=== PATIENT | male | born 1975 | race Caucasian/White ===

== ENCOUNTER 2017-07-21 05:25 | Observation (INO) | payer BC, SELFPAY ==
[2017-07-21 07:17] LABS: #Eosinphils 0.1 thou/uL (0.0-0.7); #Lymphocytes 1.4 thou/uL (1.20-3.40); #Monocytes 0.8 thou/uL (0.11-0.59); #Neutrophils 8.9 thou/uL (1.40-6.50); %Basophils 0.1 % (0.0-1.0); %Eosinophils 0.6 % (0.0-10.0); %Lymphocytes 12.2 % (21.0-51.0); %Monocytes 6.8 % (0.0-10.0); %Neutrophils 80.3 % (42.0-75.0); Hemoglobin 15.5 g/dL (14.0-18.0); Mean Corpuscular HGB CONC 34.4 g/dL (32.0-36.0); Mean Corpuscular Hemoglobin 28.7 pg (27.0-31.0); Mean Corpuscular Volume 83.4 fl (80.0-94.0); Mean Platelet Volume 6.1 fL (7.4-10.4); Platelet Count 267 thou/uL (130-400); RBC Distribution Width 11.6 % (11.5-14.5); White Blood Cell (WBC) Count 11.1 thou/uL (4.8-10.8)
[2017-07-21 07:21] LABS: ALT (SGPT) 21 U/L (8-55); AST (SGOT) 16 U/L (5-34); Albumin 4.3 g/dL (3.5-5.0); Alkaline Phosphatase 75 U/L (40-150); Anion Gap 16 mmol/L (10-20); BUN (Urea Nitrogen) 14 mg/dL (8.9-20.6); Bilirubin, Total 0.4 mg/dL (0.2-1.2); CK (CPK) 55 U/L (30-200); Calc. Creatinine Clearance 0 mL/min (70-130); Calcium 9.2 mg/dL (7.8-10.44); Carbon Dioxide 23 mmol/L (22-29); Chloride 105 mmol/L (98-107); Estimated GFR-MDRD Greater than 90; Globulin 3.1 g/dL (2.4-3.5); Glucose 150 mg/dL (70-105); Lipase 14 U/L (8-78); Potassium 3.7 mmol/L (3.5-5.1); Protein, Total 7.4 g/dL (6.0-8.3); Sodium 140 mmol/L (136-145)
[2017-07-21 07:22] LABS: Acetaminophen Less than 6.0 mcg/mL (10.0-30.0); Alcohol Less than 10 mg/dL (Less than 10); Salicylate Less than 8.0 mg/dL (15.0-30.0)
[2017-07-21 07:25] LABS: CKMB 0.4 ng/mL (0-6.6); Troponin I Less than 0.010 ng/mL (< 0.028)
[2017-07-21 07:27] LABS: Bilirubin Negative (Negative); Blood, Urine Negative (Negative); Clarity CLEAR (Clear); Glucose, Urine (Dipstick) 100 mg/dL (Negative); Leukocyte Negative (Negative); Nitrite Negative (Negative); Protein, Urine (Dipstick) Trace mg/dL (Neg-Trace); Specific Gravity, Urine 1.026 (1.002-1.036); Urobilinogen 0.2 mg/dL (0.2-1.0)
[2017-07-21 07:40] LABS: Amphetamine Not Detected (NotDetected); Barbiturates Screen Not Detected (NotDetected); Benzodiazepine Screen Not Detected (NotDetected); Cocaine Metabolite Screen Not Detected (NotDetected); Medtox Reader # READER 1; Methadone Not Detected (NotDetected); Methamphetamine Not Detected (NotDetected); Opiate Screen Not Detected (NotDetected); Phencyclidine (PCP) Not Detected (NotDetected); THC/Cannabinoid Screen Not Detected (NotDetected); Tricyclic Screen Not Detected (NotDetected)
[2017-07-21 07:41] LABS: Medtox Control Line Valid? VALID (VALID); Oxycodone Screen Not Detected (NotDetected)
--- NOTE | 2017-07-21 07:59 | CT ---
NONCONTRAST HEAD CT: Date: 07/21/17 HISTORY: Altered mental status. COMPARISON: None. TECHNIQUE: Noncontrast head CT is performed from skull base to skull vertex. FINDINGS: No parenchymal hemorrhage or extra-axial hematoma. No midline shift. Basilar cisterns are patent. Bra in volume is age-appropriate. Cortical santos-white matter differentiation is preserved. Ventricles and sulci are patent and symmetric. Calvarium is intact. Adequate aeration of the sinuses and mastoid ai r cells. IMPRESSION: No acute intracranial process. POS: OFF
--- NOTE | 2017-07-21 08:17 | CT ---
CTA THORAX WITH CONTRAST CTA ABDOMEN WITH CONTRAST: (Computed Tomographic Angiography, chest(noncoronary) with contrast material, and image postprocessin g) (Computed Tomographic Angiography, abdomen with contrast material, and image postprocessing) Date: 07/21/17 Time: 0737 hours HISTORY: 41-year-old male status post syncope, with dyspnea and chest pain that radiates to the posterior aspe ct of the chest. TECHNIQUE: IV injection of iodinated contrast: 100 mL [id number]. Arterial phase bolus chasing technique. Scan acquisition from top of top of aortic arch to iliac crests. 3D MIP reconstructions. FINDINGS: There is no thoracic aortic aneurysm, dissection, or rupture. No mediastinal lymphadenopathy. The thy roid gland is diffusely enlarged, with multiple nodules. The right lobe of the thyroid gland is asymm etrically significantly larger than the left, and has a component that extends slightly inferior to t he superior edge of the sternal manubrium. The trachea is mildly to moderately deviated to the left, and mildly narrowed. No pulmonary edema, air space density, bronchiectasis, or bullae. Mild dependent densities at the posterior, subpleural aspects of the bilateral lower lobes. No pleural effusion or pneumothorax. No high grade narrowing of the trachea or major bronchi. No destructive osseous lesion identified. IV contrast opacification of pulmonary arteries is insufficient to evaluate for pulmonary thromboembolism, but there is no thrombus in the pulmonic trunk, or the left and right main pulmonar y arteries. Beyond that, the branches of the pulmonary arteries cannot be evaluated. No free fluid id entified in the upper abdominal cavity. No abdominal aortic aneurysm or dissection. Bilateral kidneys , adrenals, liver, and spleen demonstrate no obvious abnormality. Visualized upper portions of the co nargis and small intestine demonstrate no acute abnormality. There are multiple mildly enlarged mesenter ic lymph nodes. There is a mild twisting of the mesentery to the right of midline in the central abdo men. No associated venous or arterial mesenteric occlusion identified. No pneumoperitoneum identified . The pancreas, adrenals, liver, and spleen are also normal. IMPRESSION: 1. No aortic dissection or aneurysm. 2. No acute findings. 3. Multinodular goiter, including right substernal goiter. sherrie[] POS: TANISHA
[2017-07-21 10:08] LABS: Free T4 (Free Thyroxine) 1.33 ng/dL (0.70-1.48)
[2017-07-21 10:08] LABS: Troponin I Less than 0.010 ng/mL (< 0.028)
[2017-07-21] MEDS ORDERED: Loperamide HCl 2 MG CAP PO PRN (10:26)
[2017-07-21] MEDS ORDERED: Dextrose 5% in Water 1,000 ML IV PRN (10:26)
[2017-07-21] MEDS ORDERED: HumaLOG 300 UNITS/3 ML VIAL SC PRN ×2 (10:26)
[2017-07-21] MEDS ORDERED: Milk Of Magnesia 30 ML UDCUP PO PRN (10:26)
[2017-07-21] MEDS ORDERED: Ondansetron HCl/PF 4 MG/2 ML Vial IVP PRN (10:26)
[2017-07-21] MEDS ORDERED: Zolpidem Tartrate 5 MG TAB PO PRN (10:26)
[2017-07-21] MEDS ORDERED: Sodium Chloride 0.65% Nasal 44 ML BOT EA NARE PRN (10:26)
[2017-07-21] MEDS ORDERED: Loratadine 10 MG TAB PO PRN (10:26)
[2017-07-21] MEDS ORDERED: hydrALAZINE 20 MG/ML VIAL SLOW IVP PRN (10:26)
[2017-07-21] MEDS ORDERED: Diabetic Tussin 200 MG/10 ML UDCUP PO PRN (10:26)
[2017-07-21] MEDS ORDERED: Acetaminophen 325 MG TAB PO PRN (10:26)
[2017-07-21] MEDS ORDERED: Eucerin (Mineral Oil/Petrolatum,White) 30 gm Jar TOP PRN (10:26)
[2017-07-21] MEDS ORDERED: Chloraseptic Spray 180 ml Bottle PO PRN (10:26)
[2017-07-21] MEDS ORDERED: Artificial Tears 18 DROP/0.9 ML EA EYE PRN (10:26)
[2017-07-21] MEDS ORDERED: Mag-Al 1200 mg/1200 mg/30 ML UDCUP PO PRN (10:26)
[2017-07-21] MEDS ORDERED: HYDROcodone/Acetaminophen 5/325 mg Tablet PO PRN (10:26)
[2017-07-21] MEDS ORDERED: Senokot 8.6 MG TAB PO PRN (10:26)
[2017-07-21] MEDS ORDERED: Dextrose 50% Abboject 50 ML SYRINGE SLOW IVP PRN (10:26)
[2017-07-21] MEDS ORDERED: Ondansetron ODT 4 MG TAB PO PRN (10:26)
[2017-07-21] MEDS ORDERED: Benzonatate 100 MG CAP PO PRN (10:26)
[2017-07-21] MEDS ORDERED: Albuterol Sulfate 2.5 mg/3 ml Neb NEB PRN (10:26)
[2017-07-21] MEDS ORDERED: Sodium Chloride 0.9% 1,000 ML IV SCH (10:45)
--- NOTE | 2017-07-21 10:48 | HP ---
PRIMARY CARE PHYSICIAN: [facility] per patient. REASON FOR ADMISSION: Altered mental status. HISTORY OF PRESENT ILLNESS: A 41-year-old male who has history of diabetes type 2, who was brought t o the ER for altered mental status. The patient's girlfriend is present who provided most of the his tory. Patient reports that around 4:30 this morning, he had syncopal episode. As per description of girlfriend, the patient was clammy and pale. The patient was not able to move any extremity, though he was awake. The patient was incoherent. He was feeling very weak all over. He was not able to g rip in both hands. After a short term, the patient was able to feel and he was able to move one by o ne extremity and when he came to the ER, he was feeling normal. He denies any associated chest pain, palpitation, shortness of breath. He has diabetes history, but paramedics checked the blood sugar w hich was 142 at home. The patient was able to get out of bed by himself at home. In the emergency r oom, he was remaining stand still and that is why for altered mental status workup, CT brain was done which was unremarkable. Routine blood tests showed elevated ammonia and low TSH. Yesterday, the patient went to [facility] urgent care where he presented for shortness of breath and chest pain, which was left-sided in nature without any palpitation, without any exertional worse betty or radiation. He had a chest x-ray and he was told that there was something shadow in his chest , but they suspected walking pneumonia and bronchitis and he was given Z-REY, albuterol inhaler and c ough pill and the patient was discharged with outpatient followup with primary care doctor and stress test if needed. The patient took one pill of Z-REY and Tessalon Perles. He does have some cough, but he denies any p leuritic chest pain. He denies any fever or chills. He denies any nausea, vomiting, diaphoresis. Today, CT dissection protocol was done which was negative for any dissection, but it did show subster nal goiter. The patient feels that he was anxious. ALLERGIES: No known drug allergy. CURRENT HOME MEDICATIONS: Tessalon 100 mg q.8 hourly p.r.n., albuterol 2 puffs q.4 hourly p.r.n., gl ipizide 5 mg twice daily, lisinopril 20 mg p.o. daily, metformin 1000 mg twice daily, pravastatin 40 mg p.o. daily, Zoloft 50 mg p.o. daily. REVIEW OF SYSTEMS: The following complete review of systems was negative, unless otherwise mentioned in the HPI or below: Constitutional: Weight loss or gain, ability to conduct usual activities. Skin: Rash, itching. Eyes: Double vision, pain. ENT/Mouth: Nose bleeding, neck stiffness, pain, tenderness. Cardiovascular: Palpitations, dyspnea on exertion, orthopnea. Respiratory: Shortness of breath, wheezing, cough, hemoptysis, fever or night sweats. Gastrointestinal: Poor appetite, abdominal pain, heartburn, nausea, vomiting, constipation, or diarr hea. Genitourinary: Urgency, frequency, dysuria, nocturia. Musculoskeletal: Pain, swelling. Neurologic/Psychiatric: Anxiety, depression. Allergy/Immunologic: Skin rash, bleeding tendency. Please see my HPI for pertinent positive and negative. All other review of systems reviewed and nega tive except as mentioned in the HPI. As per emergency room physician, patient was initially mumbling, but when I saw this patient, at that time he was completely normal, and patient was feeling back to normal. PAST MEDICAL HISTORY: Diabetes type 2, hypertension, dyslipidemia, morbid obesity. PAST SURGICAL HISTORY: Stomach surgery, appendicectomy, tonsillectomy. PAST PSYCHIATRIC HISTORY: Anxiety and depression. SOCIAL HISTORY: The patient quit smoking 6 months ago, but currently dips tobacco. He denies any al cohol abuse. He denies any other illicit drug abuse. He is working in [employer]. FAMILY HISTORY: No strong family history of premature coronary artery disease, stroke or cancer. EMERGENCY ROOM COURSE: Patient is given lactulose 30 mL p.o., aspirin 324 mg and IV fluid. PHYSICAL EXAMINATION: VITAL SIGNS: On arrival, blood pressure 142/81, pulse 94, respiratory rate 20, temperature 98.5, sat uration 98% on room air, weight 108.9 kilograms. GENERAL: The patient is currently alert, oriented, no acute distress. HEENT: Head: Normocephalic, atraumatic. Eyes: Pupils round, reactive to light. Extraocular muscl e intact. ENT: Oropharynx within normal limits. Moist mucous membranes, no oral lesion, no pharyng eal erythema, no exudate. NECK: Supple, no JVD, no thyromegaly, no carotid bruit, no meningeal signs of irritation. LUNGS: Clear to auscultation without any rhonchi or rales. CARDIAC: S1, S2 regular. No murmur, no gallop, no rub. ABDOMEN: Obesity present. Bowel sounds present, nontender, nondistended. No organomegaly, no mass, no suprapubic tenderness. BACK: Unremarkable, no CVA tenderness. EXTREMITIES: Upper extremity: Passive movement of all joints are normal. Lower extremity: No leigh a, good peripheral pulsation, no calf tenderness. SKIN: No skin rash. HEMATOLOGICAL: No lymphadenopathy. PSYCHIATRIC: Anxious affect. NEUROLOGIC: The patient is alert, oriented x3. Cranial nerves II through XII intact. Motor 5/5 in all four limbs. Sensation bilaterally symmetrical. Plantar bilateral flexor. SIGNIFICANT LABORATORY DATA: 1. CBC: WBC 11.1, hemoglobin 15.5, platelet 267. ESR 13. BMP: Sodium 140, potassium 3.7, chlorid e 105, carbon dioxide 23, anion gap 16, BUN 14, creatinine 0.79, glucose 150, calcium 9.2. 2. LFT: AST 16, ALT 21, alkaline phosphatase 75, albumin 4.3. Ammonia 78. CK 55, CK-MB 0.4, tropo paula I less than 0.010. CRP 0.73. TSH less than 0.0025. Lipase 14. Prolactin 4.56. Urinalysis unr emarkable. Urine drug screen negative. Serum drug screen negative. IMAGING: CT brain based on my review, no acute intracranial process. CT dissection protocol based o n my review, no evidence of dissection or pulmonary embolism, but it did show substernal goiter. ASSESSMENT AND PLAN: 1. Acute altered mental status. Patient's description is very weak. He does not have any focal cami rological deficit. His CT brain is negative, does not suspect any intracranial pathology. Currently , he has very low TSH and I am suspecting patient has underlying hyperthyroidism. We will check free T4 and free T3 that may explain his anxiety and subsequent presentation. Some presentation is also not explained clinically to the pinpoint diagnosis and that is why we will consult Neurology for thei r opinion. He has elevated ammonia, but that does not explain his presentation. He does not have an y asterixis or any chronic liver disease and his other LFT is normal. 2. Hyperammonemia, unexplained. The patient is not taking any Valproic acid. He does not have any chronic liver disease. At this point, we will repeat an ammonia level tomorrow and the patient is gi glenn lactulose one time dose in the emergency room. 3. Very low TSH, suspecting hyperthyroidism. The patient has substernal goiter. We will check free T3 and free T4 and the patient will need outpatient endocrinology followup. 4. Morbid obesity. Dietary education given, weight loss education given. Healthy lifestyle measure s discussed with the patient. 5. Diabetes type 2. We will continue glipizide 5 mg twice daily, metformin 1000 mg twice daily afte r 48 hours and we will continue insulin as per sliding scale per protocol. Diabetic diet will be giv en. We are holding metformin, because of contrast given today with CT dissection protocol. 6. Dyslipidemia. We will continue pravastatin 40 mg p.o. at bedtime and check lipid profile tomorro w. 7. Anxiety and depression. Continue Zoloft 50 mg p.o. daily. 8. Chest pain. Patient will need to rule out cardiac etiology and that is why we will do serial car diac enzymes x3 and the patient will need outpatient followup with primary care physician. We will d o a treadmill stress test for diagnostic reason. 9. Deep venous thrombosis prophylaxis not needed, because we are expecting discharge in 24 hours. 10. Gastrointestinal prophylaxis. Pepcid 20 mg p.o. b.i.d. 11. Code status: The patient is FULL CODE. The patient is making his decision by himself. 12. Hypertension. We will continue patient's home medication Lisinopril 20 mg p.o. daily. Disposition plan based on clinical course. We are expecting patient's stay in hospital [address] of care discussed with the family member today. We will also observe 24 hours for neuro check, as well and Neurology will be consulted as well. Further investigation will defer to Neurology as well .
[2017-07-21 10:59] VITALS: BMI 31.1
[2017-07-21 11:48] LABS: Troponin I Less than 0.010 ng/mL (< 0.028)
[2017-07-21] MEDS: glipiZIDE 5 MG TAB PO SCH (14:43)
[2017-07-21] MEDS ORDERED: ISOVUE-370 76%-LOCM 1 ML ONE (16:23)
--- NOTE | 2017-07-21 20:02 | CON ---
DATE OF CONSULTATION: 07/21/2017 REFERRING PHYSICIAN: Dr. Kyler Faust. REASON FOR CONSULTATION: Altered mental status. HISTORY OF PRESENT ILLNESS: Mr. Diane is a pleasant 41-year-old male who has been consider ed for evaluation of altered mental status. History is obtained from patient's medical chart and dic tated H and P note as patient does not cooperate during my evaluation and refuses to provide any hist ory or participate in the examination. Apparently, the patient woke up yesterday morning around 4:30 and had a syncopal event. According to his girlfriend, he was pale and clammy. He was not able to move any extremity, though he was awake. He was incoherent. He was feeling weak all over. 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 After a few minutes, he regained all of his strength and returned to h is baseline. He was brought to the emergency room due to the concerns of this recent event where he had a CT head without contrast done which was unremarkable. He did have elevated ammonia and low TSH on routine blood work. Past medical history, past surgical history, social history, family history, current medications and allergies are reviewed and data as dictated in H and P note done by Dr. Kyler Faust. REVIEW OF SYSTEMS: Unable to perform. PHYSICAL EXAMINATION: VITAL SIGNS: Blood pressure 131/75, pulse of 71, temperature of 98, respirations of 16, O2 sats of 9 3% on room air. Patient's examination was not performed as the patient refused. LABORATORY DATA: Labs were reviewed, which included CBC, CMP, urinalysis, urine drug screen, plasma alcohol level which is significant for WBC 11.1, ammonia level of 78. TSH was less than 0.0025, free T4 of 1.33, free T3 of 3.97. CRP of 0.73, otherwise unremarkable. IMAGING STUDIES: CT head without contrast was reviewed which showed no acute intracranial abnormalit y. IMPRESSION: 1. Altered mental status, likely toxic metabolic encephalopathy. 2. Hyperammonemia. 3. Hyperthyroidism. Mr. Diane is a 41-year-old male who presented with the syncopal event followed by confusion . Based on the description of symptoms, this is likely toxic metabolic encephalopathy. He is noted to have high levels of ammonia, which is likely culprit. I will recommend obtaining MRI brain withou t contrast and EEG for further evaluation. Continue supportive care. Continue current medical manag ement.
[2017-07-21] MEDS: Famotidine 20 MG TAB PO SCH (20:09)
[2017-07-21] MEDS ORDERED: Atorvastatin Calcium 10 MG TAB PO SCH (21:00)
[2017-07-21] MEDS ORDERED: Pravastatin Sodium 40 MG TAB PO SCH (21:00)
[2017-07-22 03:53] LABS: #Eosinphils 0.2 thou/uL (0.0-0.7); #Lymphocytes 2.5 thou/uL (1.20-3.40); #Monocytes 0.6 thou/uL (0.11-0.59); #Neutrophils 3.3 thou/uL (1.40-6.50); %Basophils 0.6 % (0.0-1.0); %Eosinophils 3.5 % (0.0-10.0); %Neutrophils 49.9 % (42.0-75.0); Hemoglobin 14.7 g/dL (14.0-18.0); Mean Corpuscular HGB CONC 33.9 g/dL (32.0-36.0); Mean Corpuscular Hemoglobin 28.8 pg (27.0-31.0); Mean Corpuscular Volume 84.8 fl (80.0-94.0); Platelet Count 215 thou/uL (130-400); RBC Distribution Width 11.7 % (11.5-14.5); Red Blood Cell (RBC) Count 5.09 mill/uL (4.70-6.10); White Blood Cell (WBC) Count 6.7 thou/uL (4.8-10.8)
[2017-07-22 04:06] LABS: ALT (SGPT) 17 U/L (8-55); AST (SGOT) 10 U/L (5-34); Albumin 3.8 g/dL (3.5-5.0); Alkaline Phosphatase 54 U/L (40-150); Anion Gap 6 mmol/L (10-20); BUN (Urea Nitrogen) 11 mg/dL (8.9-20.6); Bilirubin, Total 0.5 mg/dL (0.2-1.2); Calc. Creatinine Clearance 223 mL/min (70-130); Carbon Dioxide 26 mmol/L (22-29); Chloride 111 mmol/L (98-107); Cholesterol 131 mg/dl (< 200 Desired); Estimated GFR-MDRD Greater than 90; Globulin 2.4 g/dL (2.4-3.5); Glucose 123 mg/dL (70-105); HDL Cholesterol 26 mg/dL (>60 Neg Risk); LDL Cholesterol, Calculated 83 mg/dL; Potassium 4.1 mmol/L (3.5-5.1); Protein, Total 6.2 g/dL (6.0-8.3); Sodium 139 mmol/L (136-145); Triglycerides 111 mg/dL (Less than 150)
[2017-07-22] MEDS: glipiZIDE 5 MG TAB PO SCH (08:45)
[2017-07-22] MEDS ORDERED: Lisinopril 20 MG TAB PO SCH (09:00)
--- NOTE | 2017-07-22 09:48 | ULT ---
THYROID ULTRASOUND: INDICATION: History of multinodular goiter seen on CT. FINDINGS: There are numerous enlarged hyperechoic nodules seen in this area throughout the entire thyroid gland . The thyroid gland is markedly enlarged measuring 7.2 x 4.7 x 4.4 cm in the right lobe and in the l eft lobe measuring 6.4 x 2.6 x 3.4 cm. The thyroid isthmus measures 2.1 cm. There is a mixed cystic and solid lesion involving the inferior pole extending into the inferior right thyroid pole extendin g into the isthmus that measures 3.8 x 3.6 x 2.2 cm. A similar-appearing nodule is seen within the r ight mid gland measuring 2.8 x 2.8 x 2.3 cm. There are numerous additional hyperechoic nodules in th e right thyroid gland. There is a complex partial cystic nodule superior pole left thyroid lobe mary uring 2.4 x 2.4 x 2.1 cm. There is a solid nodule seen within the left mid thyroid gland measuring 1 .8 x 1.6 x 1.3 cm. IMPRESSION: 1. Mixed solid and cystic nodules within the right thyroid gland and superior pole left thyroid glan d consistent with TIRADS 2 lesions and require no further evaluation. 2. There is a 1.8 cm solid nodule within the mid left thyroid gland. This is consistent with a LONNIE DS 3 lesion. Followup examination in 1 year is recommended to document stability. POS: CET
--- NOTE | 2017-07-22 10:33 | PDOC.PN ---
- Subjective Encounter Start Date: 07/22/17 Encounter Start Time: 09:30 Subjective: no chest pain or palp or body aches -: is sitting in waiting room for stress test - Objective Resuscitation Status: Resuscitation Status FULL:Full Resuscitation MAR Reviewed: Yes Vital Signs & Weight: Vital Signs (12 hours) Temp Pulse Resp BP BP Pulse Ox 07/22/17 07:45 98.1 F 54 L 16 07/22/17 07:12 98.1 F 53 L 20 147/76 H 95 07/22/17 05:34 95 07/22/17 03:55 54 L 16 131/75 96 Weight Weight 249 lb 1 oz I&O: 07/21/17 07/22/17 07/23/17 06:59 06:59 06:59 Intake Total 1641 Balance 1641 Result Diagrams: 07/22/17 03:37 07/22/17 03:37 Additional Labs: Accuchecks 07/21/17 07/21/17 07/21/17 21:06 16:35 11:29 POC Glucose 166 H 209 H 127 H Phys Exam - Physical Examination HEENT: PERRLA, moist MMs Neck: no JVD, supple Respiratory: no wheezing, no rales Cardiovascular: RRR, no significant murmur Gastrointestinal: soft, non-tender, no distention, positive bowel sounds Musculoskeletal: no edema, pulses present Neurological: non-focal, moves all 4 limbs Psychiatric: normal affect, A&O x 3 Dx/Plan (1) Hyperthyroidism Code(s): E05.90 - THYROTOXICOSIS, UNSP WITHOUT THYROTOXIC CRISIS OR STORM Status: Acute (2) Chest pain Code(s): R07.9 - CHEST PAIN, UNSPECIFIED Status: Acute Qualifiers: Chest pain type: unspecified Qualified Code(s): R07.9 - Chest pain, unspecified (3) HTN (hypertension) Code(s): I10 - ESSENTIAL (PRIMARY) HYPERTENSION Status: Chronic Qualifiers: Hypertension type: essential hypertension Qualified Code(s): I10 - Essential (primary) hypertension (4) DM type 2 (diabetes mellitus, type 2) Status: Chronic Qualifiers: Diabetes mellitus terminal clerk insulin use: without fpc use Diabetes mellitus complication status: with unspecified complications Qualified Code(s) : E11.8 - Type 2 diabetes mellitus with unspecified complications (5) Dyslipidemia Code(s): E78.5 - HYPERLIPIDEMIA, UNSPECIFIED Status: Acute - Plan is on asp, lipitor -: lisinopril for htn, glipizide for dm -: await stress test results -: has issues with memory, await MRI results -: will need outpt endocrine appt, thyroid Ab, TRab, usg thyroid reviewed * . Is asymptomatic now for hyperthyroid state, outpt nuclear uptake (needs 6 weeks wash out time due to contrast CT) and further w/u per endocrinology advice Will provide local union contract representative office phone# for pt to call and make appt within 6 weeks. Review of Systems - Medications/Allergies Allergies/Adverse Reactions: Allergies Allergy/AdvReac Type Severity Reaction Status Date / Time No Known Allergies Allergy Verified 07/21/17 10:58 Medications: Current Medications Acetaminophen (Tylenol) 650 mg PO Q4H PRN PRN Reason: Headache/Fever or Pain Hydrocodone Bitart/Acetaminophen ([place] 5/325) 1 tab PO Q4H PRN PRN Reason: Moderate Pain (4-6) Al Hydroxide/Mg Hydroxide (Maalox) 30 ml PO Q6H PRN PRN Reason: Heartburn or Indigestion Albuterol Sulfate (Ventolin) 2.5 mg NEB [id number] PRN PRN Reason: Wheezing Artificial Tears (Tears Naturale) 0 drop EA EYE PRN PRN PRN Reason: Dry Eyes Aspirin (Aspirin Chewable) 81 mg PO DAILY [facility] Atorvastatin Calcium (Lipitor) 10 mg PO HS [facility] Last Admin: 07/21/17 20:09 Dose: 10 mg Benzonatate (Tessalon) 100 mg PO Q4H PRN PRN Reason: Cough Dextrose/Water (Dextrose 50%) 25 gm SLOW IVP PRN PRN PRN Reason: Hypoglycemia Famotidine (Pepcid) 20 mg PO BID [facility] Last Admin: 07/21/17 20:09 Dose: 20 mg Glipizide (Glucotrol) 5 mg PO BID-AC [facility] Last Admin: 07/22/17 08:45 Dose: Not Given Glucagon (Glucagon) 1 mg IM PRN PRN PRN Reason: Hypoglycemia Guaifenesin (Robitussin Sf) 200 mg PO Q4H PRN PRN Reason: Cough Hydralazine HCl (Apresoline) 10 mg SLOW IVP Q4H PRN PRN Reason: Systolic BP > 180 Dextrose/Water (D5w) 1,000 mls @ 0 mls/hr IV .Q0M PRN; As Directed PRN Reason: Hypoglycemia Insulin Human Lispro (Humalog) 0 units SC .MODERATE SLIDING SC PRN PRN Reason: Moderate Correctional Scale Insulin Human Lispro (Humalog) 0 units SC .BEDTIME SLIDING SC PRN PRN Reason: Bedtime Correctional Scale Lisinopril (Zestril) 20 mg PO DAILY [facility] Loperamide HCl (Imodium) 2 mg PO PRN PRN PRN Reason: Diarrhea/Loose Stools Loratadine (Claritin) 10 mg PO DAILYPRN PRN PRN Reason: Sinus Symptoms Magnesium Hydroxide (Milk Of Magnesium) 30 ml PO DAILYPRN PRN PRN Reason: Constipation Mineral Oil/White Petrolatum (Eucerin Cream) 0 gm TOP BIDPRN PRN PRN Reason: Dry Skin Ondansetron HCl (Zofran Odt) 4 mg PO Q6H PRN PRN Reason: Nausea/Vomiting Ondansetron HCl (Zofran) 4 mg IVP Q6H PRN PRN Reason: Nausea/Vomiting Phenol (Chloraseptic [place] 180 Ml Bot) 0 ml PO PRN PRN PRN Reason: Sore Throat Senna (Senokot) 2 tab PO HSPRN PRN PRN Reason: Constipation Sertraline HCl (Zoloft) 50 mg PO DAILY [facility] Sodium Chloride (Concrete Nasal [place] 0.65%) 0 ml EA NARE QIDPRN PRN PRN Reason: Nasal Congestion Sodium Chloride (Flush - Normal Saline) 10 ml IVF Q12HR [facility] Last Admin: 07/21/17 20:08 Dose: Not Given Sodium Chloride (Flush - Normal Saline) 10 ml IVF PRN PRN PRN Reason: Saline Flush Zolpidem Tartrate (Ambien) 5 mg PO HSPRN PRN PRN Reason: Insomnia
[2017-07-22 11:24] VITALS: BP 159/87
[2017-07-22] MEDS: Famotidine 20 MG TAB PO SCH (11:24)
[2017-07-22 12:00] VITALS: TEMP 97.6
[2017-07-22] MEDS ORDERED: Regadenoson 0.4 MG/5 ML SYRINGE ONE (12:04)
--- NOTE | 2017-07-22 12:23 | MRI ---
NONCONTRAST ENHANCED MRI IMAGES BRAIN: HISTORY: Aphasia, syncope, altered mental status. FINDINGS: Noncontrast-enhanced MRI images of the brain obtained. Images demonstrate the brain to be unremarkable. No evidence of intracranial masses, hemorrhages, st rokes, or contusions seen. Ventricles are of normal size. IMPRESSION: Unremarkable noncontrast-enhanced MRI images of the brain. POS: [facility]
--- NOTE | 2017-07-22 12:35 | NM ---
MYOCARDIAL PERFUSION EVALUATION: INDICATION: Chest pain. RADIOPHARMACEUTICAL: 32 mCi of Technetium 99m sestamibi IV with stress and 27 mCi Technetium 99m sestamibi IV with rest. FINDINGS: When comparing the rest and stress images, no reversible myocardial perfusion defect is alisson dent. There is left ventricular dilatation. There is normal wall motion and thickening. The LVEF i s estimated at 60%. IMPRESSION: 1. No scintigraphic evidence to suggest myocardial ischemia. 2. Mild left ventricular dilatation. 3. Estimated left ventricular ejection fraction of 60%. POS: [facility]
--- NOTE | 2017-07-22 17:12 | DIS ---
DATE OF ADMISSION: 07/21/2017 DATE OF DISCHARGE: 07/22/2017 DISCHARGE DISPOSITION: To home. PRIMARY DISCHARGE DIAGNOSES: 1. Altered mental state on arrival, resolved. 2. Hyperthyroidism for outpatient workup. SECONDARY DISCHARGE DIAGNOSES: Chest pain, which is noncardiac, hypertension, diabetes mellitus type 2, and dyslipidemia. PROCEDURES DONE DURING HOSPITALIZATION: CT brain showed no acute intracranial process. CT dissection protocol done showed no aortic dissection or aneurysm, no acute findings were seen. There is incidental finding of multinodular goiter including a right substernal goiter. Nuclear stress test showed no evidence of myocardial ischemia. Ejection fraction was 60%. There is mild LV dilatation seen. Thyroid ultrasound showed mixed solid and cystic nodules within the right thyroid gland and superior pole of left thyroid gland consistent with TI-RADS 2 lesions and require no further evaluation. There is also a 1.8 cm solid nodule within the mid left thyroid gland, which is consistent with TI-RADS 3 lesion. Followup for this within 1 year was recommended. MRI brain showed no acute intracranial abnormality. Sed rate was 13 and LDL was 83, total cholesterol 131, triglycerides 111. Free T3 is 3.97, free T4 is 1.33. TSH was less than 0.0025. Ammonia levels were 78 and a repeat this morning was 45 micromoles per liter. DISCHARGE MEDICATIONS: Glipizide 5 mg p.o. twice daily, lisinopril 20 mg daily , Glucophage as before, Pravachol 40 mg p.o. at bedtime, and sertraline 50 mg p.o. daily. ALLERGIES: No known drug allergies. INPATIENT CONSULTS: Dr. Amari Abarca for Neurology. DISCHARGE PLAN: Patient to follow up with outpatient equipment inspector in 3-4 weeks. He also needs outpatient thyroid workup, further workup as needed. The patient needs follow up with primary care physician in 1 week. BRIEF COURSE DURING HOSPITALIZATION: Patient initially got admitted on the , after he was brought to ER for altered mental state. Apparently, his girlfriend brought him to the ER after he had a syncopal episode and was feeling clammy and pale. He also had complained of chest pain in between. He had a complete cardiac and neurologic workup done during his stay here. The investigations done for those are mentioned above. There are no signs of reversible ischemia on stress and no intracranial abnormalities, acute infarcts seen on the MRI. The patient likely has hyperthyroidism, but his heart rate has ranged in the 50s to 80s max. He has no sign of tremor or thyrotoxic features at present. The thyroid antibodies and TSH receptor antibody results are pending, which are send out labs. His ultrasound thyroid confirms multinodular goiter findings with cystic nodules. The patient has had iodine administered as part of contrast for CT dissection and he has also had a nuclear stress test. He needs to wait for at least 6 weeks for wash out to get a thyroid uptake nuclear scan if it is needed. He can get all these done via outpatient Endocrinology. He is otherwise hemodynamically stable and will be shortly discharged home. Please see a [id number] documentation on [facility] for the day of discharge. ALESSIO
[2017-07-24 10:28] LABS: EliA Thy New Method **** NEW METHOD ****
== END 2017-07-22 14:32 | disposition home or self-care (01) ==
LOC: ERS 05:25 → 2SW 10:04
PROVIDERS: ADMIT Internal Medicine; ATTEND Internal Medicine
DX: R41.82 Altered mental status, unspecified (principal); R07.89 Other chest pain; R55 Syncope and collapse; I10 Essential (primary) hypertension; E11.9 Type 2 diabetes mellitus without complications; E78.5 Hyperlipidemia, unspecified; E05.20 Thyrotoxicosis with toxic multinodular goiter without thyrotoxic crisis or storm; F41.8 Other specified anxiety disorders; F17.290 Nicotine dependence, other tobacco product, uncomplicated; E72.20 Disorder of urea cycle metabolism, unspecified; E66.01 Morbid (severe) obesity due to excess calories; Z68.31 Body mass index [BMI] 31.0-31.9, adult; Z79.899 Other long term (current) drug therapy; Z79.84 Long term (current) use of oral hypoglycemic drugs
CPT/HCPCS: 36415; 36416; 70450; 70551; 71275; 76536; 78452; 80053; 80061; 80306; 80307; 81003; 82140; 82550; 82553; 83690; 83880; 84146; 84238; 84439; 84443; 84445; 84481; 84484; 85025; 85652; 86140; 86376; 86800; 93005; 93017; 95816; 95819; 96360; 96361; A4216; A9500; G0378; J2785

== ENCOUNTER 2018-02-25 00:21 | Emergency (ER) | payer BC | END 2018-02-25 00:53 | disposition home or self-care (01) | LOC: ERS 00:21 | DX: L03.031 Cellulitis of right toe (principal); E11.9 Type 2 diabetes mellitus without complications; E03.9 Hypothyroidism, unspecified; I10 Essential (primary) hypertension; Z87.891 Personal history of nicotine dependence | CPT/HCPCS: 10060 ==

== ENCOUNTER 2023-08-19 01:02 | Emergency (ER) | payer BC ==
[2023-08-19] MEDS ORDERED: Insulin Regular 300 UNITS/3 ML VIAL ONE (02:36)
== END 2023-08-19 03:47 | disposition home or self-care (01) ==
LOC: ERS 01:02
DX: E11.65 Type 2 diabetes mellitus with hyperglycemia (principal); I10 Essential (primary) hypertension; F17.220 Nicotine dependence, chewing tobacco, uncomplicated
CPT/HCPCS: 36416; 93005; J1815

== ENCOUNTER 2023-09-16 22:42 | Emergency (ER) | payer BC ==
[2023-09-17] MEDS ORDERED: predniSONE 20 MG TAB ONE (01:41)
[2023-09-17] MEDS ORDERED: diphenhydrAMINE 25 MG CAP ONE (01:41)
[2023-09-17 02:36] LABS: #Basophils 0.03 10x3/uL (0.0-0.2); %Basophils 0.3 % (0.0-1.0); %Eosinophils 3.7 % (0.0-10.0); %Lymphocytes 33.1 % (21.0-51.0); %Monocytes 8.5 % (0.0-10.0); %Neutrophils 54.1 % (42.0-75.0); Hematocrit 46.5 % (42.0-52.0); Hemoglobin 15.7 g/dL (14.0-18.0); Mean Corpuscular HGB CONC 33.8 g/dL (32.0-36.0); Mean Corpuscular Hemoglobin 28.5 pg (27.0-31.0); Mean Corpuscular Volume 84.5 fL (78.0-98.0); Mean Platelet Volume 8.8 fL (7.4-10.4); Platelet Count 259 10x3/uL (130-400); RBC Distribution Width 12.8 % (11.5-14.5)
[2023-09-17 02:55] LABS: ALT (SGPT) 22 U/L (8-55); AST (SGOT) 19 U/L (5-34); Albumin 4.3 g/dL (3.5-5.0); Alkaline Phosphatase 72 U/L (40-110); Anion Gap 13 mmol/L (10-20); BUN (Urea Nitrogen) 13 mg/dL (8.9-20.6); Bilirubin, Total 0.5 mg/dL (0.2-1.2); CRP,High Sensitivity (Inhouse) 0.32 mg/dL (< or = 0.5); Calc. Creatinine Clearance 0 mL/min (70-130); Calcium 9.5 mg/dL (7.8-10.44); Carbon Dioxide 27 mmol/L (22-29); Chloride 100 mmol/L (98-107); Estimated GFR 106; Globulin 3.1 g/dL (2.4-3.5); Glucose 191 mg/dL (70-105); Potassium 3.7 mmol/L (3.5-5.1); Protein, Total 7.4 g/dL (6.0-8.3); Sodium 136 mmol/L (136-145)
== END 2023-09-17 03:24 | disposition home or self-care (01) ==
LOC: ERS 22:42
DX: R21 Rash and other nonspecific skin eruption (principal); J44.9 Chronic obstructive pulmonary disease, unspecified; I10 Essential (primary) hypertension; E11.9 Type 2 diabetes mellitus without complications; F17.220 Nicotine dependence, chewing tobacco, uncomplicated
CPT/HCPCS: 36415; 80053; 85025; 86141; 99283; J7512